=== PATIENT | female | born 1990 | race Caucasian/White ===

== ENCOUNTER → 2020-11-23 10:50 | Outpatient (CLI) | payer BC, SELFPAY ==
--- NOTE | 2020-11-23 10:53 | US_ITS ---
STUDY: ULTRASOUND BREAST - RIGHT REASON FOR EXAM: Female, 30 years old. Palpable lump in the right breast. TECHNIQUE: Axial and longitudinal images of the RIGHT breast were performed with a high resolution ultrasound transducer. # OF IMAGES: 34 COMPARISON: Comparison is made with prior mammogram done earlier today. FINDINGS: RIGHT Breast: The retroareolar region of the breast as well as the superior aspect of the right breast was examined by ultrasound. No sonographic abnormalities seen. IMPRESSION: No sonographic abnormality is seen. ASSESSMENT CATEGORY: BIRADS Category 1: Negative. A letter regarding these results will be sent to the patient by the facility within 30 days. Electronically Signed: Bertram Cutler MD at 13:11 EST , Service support , STUDY: ULTRASOUND BREAST - LEFT REASON FOR EXAM: Female, 30 years old. Palpable lump left breast. TECHNIQUE: Axial and longitudinal images of the LEFT breast were performed with a high resolution ultrasound transducer. # OF IMAGES: 34 COMPARISON: Comparison is made with prior mammogram done earlier in the day. FINDINGS: LEFT Breast: The retroareolar region of the left breast as well as the superior portion was examined by ultrasound. No sonographic abnormality is seen. US/Breast Limited Unilateral
--- NOTE | 2020-11-23 10:53 | BI_ITS ---
MAMMOGRAPHY - BILATERAL DIAGNOSTIC REASON FOR EXAM: Female, 30 years old. Bilateral breast lumps. PERTINENT HISTORY: Non-contributory. TECHNIQUE: Digital bilateral breast bakari (3D mammographic acquisition) in the CC and MLO projections. 2-D mediolateral oblique (MLO) and craniocaudad (CC) views of both breasts were obtained. CAD: Full Field Digital Mammography with Computer Added Detection was performed. COMPARISON: None. Baseline examination. FINDINGS: Breast Composition: The breasts are heterogeneously dense, which may obscure small masses. There are no dominant masses or suspicious calcifications. No other significant abnormalities are identified. BI/DIAG MAMM W/CAD, BILAT IMPRESSION: Negative diagnostic mammogram. Correlation with ultrasound is recommended. ASSESSMENT CATEGORY: BIRADS Category 2: Benign. A letter regarding these results will be sent to the patient by the facility within 30 days. Approximately 10% of breast cancers are not detected by mammography. A normal mammogram should not delay biopsy of a clinically suspicious abnormality. Electronically Signed: Bertram Cutler MD at 12:30 EST , Service support ,
== END ==
LOC: OPBI 10:51
PROVIDERS: PCP Nurse Practitioner; Referring Provider Nurse Practitioner; Visit Provider Nurse Practitioner
DX: R92.8 Other abnormal and inconclusive findings on diagnostic imaging of breast (principal); N63.10 Unspecified lump in the right breast, unspecified quadrant; N63.20 Unspecified lump in the left breast, unspecified quadrant
CPT/HCPCS: 76642; 77062; 77066; G0279

== ENCOUNTER 2025-04-28 12:41 | Emergency (ER) | payer OTHER, SELFPAY ==
[2025-04-28 12:42] VITALS: BP 132/118; PULSE 56; RESP 22; TEMP 36.7; O2SAT 100
[2025-04-28 12:44] VITALS: BMI 24.7
--- NOTE | 2025-04-28 13:00 | EX.ED.DYSGE1 ---
HPI <ANUPAM Lizarraga - Last Filed: 04/28/25 15:50> History of Present Illness Chief Complaint: Abd Pain Narrative Narrative: 34-year-old female presents with left-sided abdominal and flank pain. She states over the last day she had some abdominal cramping but about an hour ago she developed sudden left flank pain that radiates towards the left upper abdomen and she became nauseated and vomited. Last week she noticed some blood in her urine but it resolved and she had no dysuria. No fever or chills. No history of kidney stones. Her only surgical history is a left salpingectomy for ectopic . She has a Mirena IUD and does not have menstrual cycles. PFSH <ANUPAM Lizarraga Last Filed: 04/28/25 15:50> [facility] Medical History (Updated 04/28/25 @ 17:[address] Shad Pillai MD) Miscarriage Home Medications Medication Instructions Recorded Last Taken Type hydrocodone-acetaminophen 5-325mg 1 tab PO Q6H PRN PRN Pain 3 days 04/28/25 Unknown Rx 5mg-325mg #12 TABLETS ibuprofen 600 mg tablet 600 mg PO Q6H PRN PRN pain #20 04/28/25 Unknown Rx TABLETS ondansetron 4 mg disintegrating 4 mg PO Q6H PRN nausea and 04/28/25 Unknown Rx tablet vomiting #12 tabs tamsulosin 0.4 mg capsule (Flomax) 0.4 mg PO DAILY 14 days #14 caps 04/28/25 Unknown Rx Allergy/AdvReac Type Severity Reaction Status Date / Time fentanyl AdvReac Vomiting Verified 04/28/25 13:04 Surgical History no surgical history Social History Smoking Status: Current every day smoker tobacco type: cigarettes ROS <ANUPAM Lizarraga - Last Filed: 04/28/25 15:50> ROS ED ROS Narrative Constitutional: Negative for fever, chills, malaise. CVS: Negative for chest pain. Respiratory: Negative for shortness of breath, cough. GI: Positive for abdominal pain, nausea, vomiting. Negative for diarrhea, constipation, melena, hematochezia. : Positive for hematuria. No dysuria. EXAM <ANUPAM Lizarraga Last Filed: 04/28/25 15:50> Physical Exam Narrative Exam Narrative: CONST: Patient appears uncomfortable lying in bed. EYES: Normal inspection. NECK: Normal inspection. RESP: No respiratory distress, CTAB. CVS: Regular rate and rhythm, no murmur, no gallop. ABD: Soft with left upper quadrant tenderness, no guarding or rebound, nondistended, no hepatosplenomegaly. Back: Normal inspection, no CVA tenderness. SKIN: Color normal, no rash, warm, dry, intact. EXTREMITIES: Normal appearance, no pedal edema. NEURO: Alert and answering questions appropriately. PSYCH: Normal affect. Const Vital Signs: 04/28/25 12:42 04/28/25 14:41 04/28/25 15:54 Temperature 98.1 F 98.1 F Temperature Source Oral Pulse Rate 56 L 68 56 L Respiratory Rate 22 H 14 16 Blood Pressure 132/118 H 108/45 L 112/72 Blood Pressure Mean 122 66 85 Pulse Ox 100 100 Oxygen Delivery Method Room Air <Dr. Shad Pillai MD - Last Filed: 04/28/25 17:15> Physical Exam Const Vital Signs: 04/28/25 12:42 04/28/25 14:41 04/28/25 15:54 Temperature 98.1 F 98.1 F Temperature Source Oral Pulse Rate 56 L 68 56 L Respiratory Rate 22 H 14 16 Blood Pressure 132/118 H 108/45 L 112/72 Blood Pressure Mean 122 66 85 Pulse Ox 100 100 Oxygen Delivery Method Room Air MDM <ANUPAM Lizarraga - Last Filed: 04/28/25 15:50> [facility] Narrative Medical decision making narrative: Differential includes but not limited to kidney stone, pyelonephritis, PUD, diverticulitis Patient had hematuria last week and now presents with acute left upper quadrant abdominal pain and left flank pain with nausea and vomiting. She appears uncomfortable but nontoxic. She is initially hypertensive, slightly bradycardic and tachypneic, but afebrile. On exam she is tender in the left upper and mid abdomen without peritoneal signs and has left CVA tenderness. CBC and BMP are unremarkable. Serum is negative. UA has hematuria and 1+ bacteria but no nitrites or WBCs. It was sent for culture. CT shows a 8 mm proximal left ureteral stone with mild hydronephrosis which correlates with her exam. Her symptoms are well-controlled after 1 dose of IV Toradol and Zofran so she is appropriate for discharge with outpatient urology follow-up. I prescribed [place], ibuprofen, Zofran, and Flomax and discussed return precautions. She was discharged in stable condition. I have personally performed a face to face assessment of the patient and have reviewed the LAURA Note. I performed a substantive portion of the visit including all aspects of the following. My ang findings include: History is remarked for abrupt onset of left flank lower back pain that radiated anteriorly towards the inguinal area She did report frequency recently. Denies dysuria, hematuria or urgency. She has no known history of renal ureterolithiasis. She states her mother at a young age from a ruptured aneurysm. She does not know much about her father. Coworker states she became quite diaphoretic when the pain intensified. Nothing truly made it better or worse Exam is patient is now resting comfortably. Initially she had elevated blood pressure with bradycardia and tachypnea. Patient was medicated with ketorolac with essentially resolution of her pain. Abdomen soft nontender. Bowel sounds are present normal. There is no CVA tenderness noted. Is no inguinal lymphadenopathy or mass noted. Medical Decison Making differential diagnosis is ureterolithiasis with obstruction, pain of unknown etiology, possible muscle spasm Other additions or changes: [None] Lab Data Labs: Laboratory Results - last 24 hr 04/28/25 04/28/25 13:00 13:20 WBC 10.2 RBC 4.48 Hgb 14.3 Hct 42.9 MCV 95.8 MCH 31.9 MCHC 33.3 RDW Std Deviation 46.9 H RDW Coeff of [place] 13.2 Plt Count 358 MPV 9.1 Immature Gran % (Auto) 0.400 Neut % (Auto) 66.1 Lymph % (Auto) 23.2 [place] % (Auto) 7.4 Eos % (Auto) 2.0 Baso % (Auto) 0.9 Absolute Neuts (auto) 6.8 Absolute Lymphs (auto) 2.38 Nucleated RBC % 0 Sodium 139 Potassium 4.2 Chloride 104 Carbon Dioxide 23.5 Anion Gap 12 BUN 16 Creatinine 0.99 Estim Creat Clear Calc 70.34 Est GFR (MDRD) Non-Af 76 BUN/Creatinine Ratio 16.2 Glucose 113 H Calcium 9.3 Serum , Qual NEGATIVE Urine Color Yellow Urine Clarity Sl. Cloudy Urine pH 7.0 Ur Specific [place] 1.015 Urine Protein 30 H Urine Glucose (UA) Normal Urine Ketones Negative Urine Occult Blood 250 H Urine Nitrite Negative Urine Bilirubin Negative Urine Urobilinogen Normal Ur Leukocyte Esterase 25 H Urine RBC 25-50 SEEN Urine WBC 0-5 SEEN Ur Squamous Epith Cells 0-5 SEEN Urine Bacteria 1+ Urine Mucus 0 SEEN Radiography Diagnostic Testing: Clinical Impression(s) from Imaging Studies Abdomen/Pelvis CT 04/28/25 14:45 IMPRESSION: Obstructing left ureteral stone with mild hydronephrosis. Reading Location: [id number] <Dr. Shad Pillai MD - Last Filed: 04/28/25 17:15> [facility] MDM Narrative Medical decision making narrative: I have personally performed a face to face assessment of the patient and have reviewed the LAURA Note. I performed a substantive portion of the visit including all aspects of the following. My ang findings include: History is remarked for abrupt onset of left flank lower back pain that radiated anteriorly towards the inguinal area She did report frequency recently. Denies dysuria, hematuria or urgency. She has no known history of renal ureterolithiasis. She states her mother at a young age from a ruptured aneurysm. She does not know much about her father. Coworker states she became quite diaphoretic when the pain intensified. Nothing truly made it better or worse Exam is patient is now resting comfortably. Initially she had elevated blood pressure with bradycardia and tachypnea. Patient was medicated with ketorolac with essentially resolution of her pain. Abdomen soft nontender. Bowel sounds are present normal. There is no CVA tenderness noted. Is no inguinal lymphadenopathy or mass noted. Medical Decison Making differential diagnosis is ureterolithiasis with obstruction, pain of unknown etiology, possible muscle spasm Other additions or changes: [None] Lab Data Attestation: I reviewed the patient's lab results. Lab results narrative: CBC is normal. Patient metabolic panel is normal. Urine is remarkable for hematuria. There is no evidence of pyuria. There is 1+ bacteria. Labs: Laboratory Results - last 24 hr 04/28/25 04/28/25 13:00 13:20 WBC 10.2 RBC 4.48 Hgb 14.3 Hct 42.9 MCV 95.8 MCH 31.9 MCHC 33.3 RDW Std Deviation 46.9 H RDW Coeff of [place] 13.2 Plt Count 358 MPV 9.1 Immature Gran % (Auto) 0.400 Neut % (Auto) 66.1 Lymph % (Auto) 23.2 [place] % (Auto) 7.4 Eos % (Auto) 2.0 Baso % (Auto) 0.9 Absolute Neuts (auto) 6.8 Absolute Lymphs (auto) 2.38 Nucleated RBC % 0 Sodium 139 Potassium 4.2 Chloride 104 Carbon Dioxide 23.5 Anion Gap 12 BUN 16 Creatinine 0.99 Estim Creat Clear Calc 70.34 Est GFR (MDRD) Non-Af 76 BUN/Creatinine Ratio 16.2 Glucose 113 H Calcium 9.3 Serum , Qual NEGATIVE Urine Color Yellow Urine Clarity Sl. Cloudy Urine pH 7.0 Ur Specific [place] 1.015 Urine Protein 30 H Urine Glucose (UA) Normal Urine Ketones Negative Urine Occult Blood 250 H Urine Nitrite Negative Urine Bilirubin Negative Urine Urobilinogen Normal Ur Leukocyte Esterase 25 H Urine RBC 25-50 SEEN Urine WBC 0-5 SEEN Ur Squamous Epith Cells 0-5 SEEN Urine Bacteria 1+ Urine Mucus 0 SEEN Radiography Diagnostic Testing: Clinical Impression(s) from Imaging Studies Abdomen/Pelvis CT 04/28/25 14:45 IMPRESSION: Obstructing left ureteral stone with mild hydronephrosis. Reading Location: [facility] Discharge Plan Triage Chief Complaint: Abd Pain ED Midlevel Provider: Dione Burciaga ED Provider: Shad Pillai Dx/Rx/DC Orders Clinical Impression: Hydronephrosis with urinary obstruction due to ureteral calculus, Elevated blood-pressure reading without diagnosis of hypertension, Bradycardia, Proteinuria, Hematuria Instructions: ED Kidney Stone with Pain Prescriptions: New hydrocodone-acetaminophen 5-325 mg tablet 1 tab PO Q6H PRN PRN (Reason: Pain) 3 Days Qty: 12 0RF ondansetron 4 mg tablet,disintegrating 4 mg PO Q6H PRN (Reason: nausea and vomiting) Qty: 12 0RF ibuprofen 600 mg tablet 600 mg PO Q6H PRN PRN (Reason: pain) Qty: 20 0RF tamsulosin [Flomax] 0.4 mg capsule 0.4 mg PO DAILY 14 Days Qty: 14 0RF Primary Care Provider: Care Physician,No Primary Referrals: Josemanuel Ashby MD [Med Staff - Active Staff] - Care Physician,No Primary [Primary Care Provider] - Activity Restrictions/Additional Instructions: You have an 8 mm kidney stone in the left ureter. This is the tube that runs from your kidney to the bladder. I prescribed [place] which is an opioid pain medication and ibuprofen. Opioids can cause nausea, sedation, and constipation. I recommend you take MiraLAX or stool softeners while using it. Please call the urology office to schedule a follow-up appointment. Sometimes this part of a stone will not pass on its own. Return to the ER if you have worsening symptoms like a fever, unmanageable pain, or unable to urinate. Print Language: Libyan Disposition Disposition: Home, Self Care Discharge Date/Time: 04/28/25 15:57
[2025-04-28 13:14] LABS: Hematocrit 42.9 % (37-47); Hemoglobin 14.3 g/dL (12.0-15.0); Immature Granulocytes Count 0.040 X10^3/uL (0.0-0.0); Mean Corp Hgb Conc 33.3 g/dL (32-36); Mean Corpuscular Volume 95.8 fL (81-99); Mean Platelet Vol. 9.1 fl (6.2-12.0); NRBC Flagged by Analyzer 0 % (0-5); Platelet Count 358 K/mm3 (150-450); RBC Distribution Width CV 13.2 % (11.6-14.6); RBC Distribution Width SD 46.9 fl (35.1-43.9); Red Blood Count 4.48 M/mm3 (4.2-5.4); White Blood Count 10.2 K/mm3 (4.4-11.0)
[2025-04-28 13:37] LABS: Mucous, Urine 0 SEEN /hpf (<or=2+)
[2025-04-28 13:40] LABS: Color, Urine Yellow (Yellow); Glucose, Dipstick Normal (Normal); Ketone-Dipstick Negative (Negative); Leukocyte Esterase-Dipstick 25 /ul (Negative); Nitrite-Dipstick Negative (Negative); Occult Blood-Urine 250 /ul (Negative); Protein-Dipstick 30 mg/dl (Negative); Specific Gravity, Urine 1.015 (1.002-1.030); Urine Bilirubin Dipstick Negative (Negative)
[2025-04-28 13:46] LABS: Red Blood Cells-Urine 25-50 SEEN /hpf (0-5); Squamous Epithelial Cells - UA 0-5 SEEN /hpf (5-10)
[2025-04-28 14:12] LABS: Anion Gap 12 (5-15); BUN 16 mg/dL (4-19); BUN/Creat Ratio 16.2 RATIO (10-20); Calcium,Total 9.3 mg/dL (7.6-11.0); Carbon Dioxide 23.5 mmol/L (21.0-32.0); Chloride 104 mmol/L (98-108); Estimated Creatinine Clearance 70.34 ml/min (50-250); Glucose 113 mg/dL (70-99); Potassium 4.2 mmol/L (3.3-5.1)
[2025-04-28 14:40] LABS: Internal QC Validated? YES +Cl - CLEAR BKGD; Pregnancy, Serum, hCG Quali. NEGATIVE Negative; Record Kit Lot#, Serum Preg. 0000962302
[2025-04-28 14:41] VITALS: BP 108/45; PULSE 68; RESP 14
--- NOTE | 2025-04-28 14:45 | CT_ITS ---
PROCEDURE: ABDOMEN/PELVIS WITHOUT CONT 04/28/2025 REASON FOR EXAM: LEFT FLANK PAIN TECHNIQUE: ABDOMEN/PELVIS WITHOUT CONT Noncontrast technique limits evaluation of the abdominal and pelvic viscera. Coronal and Sagittal reconstruction series were provided. One or more dose reduction techniques were used (e.g., Automated exposure control, adjustment of the mA and/or kV according to patient size, use of iterative reconstruction technique). RADIATION DOSE SUMMARY: DLP: 240 mGycm COMPARISON: None. FINDINGS: Lung bases: Unremarkable. Liver: The unopacified liver is normal in size. No biliary ductal dilation. Gallbladder: No radiopaque stones within the gallbladder. Spleen: Normal in size. Pancreas: The unopacified pancreas is unremarkable. Adrenals: No adrenal mass. Kidneys: Mild left hydronephrosis with obstructing ureteral stone within the proximal left ureter measuring 0.8 cm. Additional punctate left midpole renal calculus. Unremarkable right kidney. Bladder: Mildly distended and unremarkable. Reproductive Organs: An IUD is present. Adnexal regions are unremarkable. Bowel: The bowel loops are nondilated. No ascites or pneumoperitoneum. Normal appendix. Lymph nodes: Visualization is limited without the use of IV contrast. No enlarged lymphadenopathy. Vasculature: The abdominal aorta and IVC contours are normal. Noncontrast technique limits evaluation. Bones: Unremarkable. CT/Abdomen/Pelvis without Cont IMPRESSION: Obstructing left ureteral stone with mild hydronephrosis. Reading Location: [id number]
[2025-04-28 15:54] VITALS: BP 112/72; PULSE 56; RESP 16; TEMP 36.7; O2SAT 100
== END 2025-04-28 15:57 | disposition home or self-care (01) ==
PROVIDERS: Physician Assistant; Emergency Provider Emergency Medicine; Visit Provider Emergency Medicine
DX: N13.2 Hydronephrosis with renal and ureteral calculous obstruction (principal); R03.0 Elevated blood-pressure reading, without diagnosis of hypertension; R00.1 Bradycardia, unspecified; R80.9 Proteinuria, unspecified; R31.9 Hematuria, unspecified; F17.210 Nicotine dependence, cigarettes, uncomplicated
CPT/HCPCS: 74176; 80048; 81001; 84703; 85025; 87086; 87088; 96374; 96375; 99283; A4216; J2405